=== PATIENT | male | born 1985 | race African-American/Black ===

== ENCOUNTER 2023-06-01 15:28 | Emergency (ER) | payer OTHER ==
[~2023-06-01] VITALS: Ht 172.7 cm; Wt 77.5 kg
[2023-06-01 15:45] VITALS: BP 115/77
[2023-06-01 16:00] VITALS: BP 109/75
[2023-06-01 16:15] VITALS: BP 114/69
[2023-06-01 16:30] VITALS: BP 105/67
[2023-06-01 16:50] VITALS: BP 122/81
[2023-06-01 16:53] VITALS: BP 122/81
== END 2023-06-01 16:54 | disposition home or self-care (01) | DRG 563 ==
LOC: ED 15:28
DX: S92.414A Nondisplaced fracture of proximal phalanx of right great toe, initial encounter for closed fracture (principal); N18.9 Chronic kidney disease, unspecified; W20.8XXA Other cause of strike by thrown, projected or falling object, initial encounter; Y92.149 Unspecified place in prison as the place of occurrence of the external cause